=== PATIENT | female | born 1980 | race Caucasian/White ===

== ENCOUNTER 2019-08-22 06:59 | Day surgery (SDC) | payer OTHER ==
[~2019-08-22] VITALS: Ht 157.5 cm; Wt 105.0 kg
[~2019-08-22 06:59] MED LIST: BUTA1CAP57 PO; IBUP-1222 PO
[2019-08-22] MEDS ORDERED: LACTATED RINGERS 1,000 ML IV SCH (07:30)
[2019-08-22 07:31] VITALS: BP 133/92
[2019-08-22 07:34] LABS: HCG UR SG 1.024 (1.003-1.030)
[2019-08-22 07:48] VITALS: BP 133/92
[2019-08-22] MEDS ORDERED: ONDANSETRON 2MG/ML, 2ML ONE (08:11)
[2019-08-22] MEDS ORDERED: CEFAZOLIN 1,000 MG ONE ×2 (08:11)
[2019-08-22] MEDS ORDERED: FENTANYL PF 100 MCG/2ML ONE ×3 (08:11→10:18)
[2019-08-22] MEDS ORDERED: MIDAZOLAM 1 MG/ML, 2ML ONE (08:11)
[2019-08-22] MEDS ORDERED: PROPOFOL 10 MG/ML, 20ML ONE (08:11)
[2019-08-22] MEDS ORDERED: LIDOCAINE-MPF 2% ,5ML ONE (08:11)
[2019-08-22] MEDS ORDERED: BUPIVACAINE/PF 0.5% ONE (09:22)
[2019-08-22] MEDS ORDERED: EPINEPHRINE 1 MG/ML, 1ML ONE (09:22)
[2019-08-22] MEDS ORDERED: HALOPERIDOL 5 MG/ML IV PRN (09:30)
[2019-08-22] MEDS ORDERED: PROMETHAZINE 25 MG/ML, 1ML IV PRN (09:30)
[2019-08-22] MEDS ORDERED: OXYcodone 5 MG/5 ML ORAL.SOL UDC PO PRN (09:30)
[2019-08-22] MEDS ORDERED: hydrALAzine 20 MG/ML, 1ML IV PRN (09:30)
[2019-08-22] MEDS ORDERED: FENTANYL PF 100 MCG/2ML IV PRN (09:30)
[2019-08-22] MEDS ORDERED: LABETALOL 5MG/ML, 20ML IV PRN (09:30)
[2019-08-22] MEDS ORDERED: MEPERIDINE/PF 25MG/ML,1ML IVPush PRN (09:30)
[2019-08-22] MEDS ORDERED: HYDROmorphone 2 MG/ML, 1ML IVPush PRN (09:30)
[2019-08-22] MEDS ORDERED: OXYcodone 5 MG/5 ML ORAL.SOL UDC ONE (10:18)
== END 2019-08-22 12:00 | disposition home or self-care (01) ==
LOC: OUT 06:59
PROVIDERS: ATTEND Orthopaedic Surgery
DX: T84.84XA Pain due to internal orthopedic prosthetic devices, implants and grafts, initial encounter (principal); E66.01 Morbid (severe) obesity due to excess calories; Y83.8 Other surgical procedures as the cause of abnormal reaction of the patient, or of later complication, without mention of misadventure at the time of the procedure
CPT/HCPCS: 20680; 73600; 81025; J0171; J0690; J2250; J2405; J2704; J3010; J7120; 76000

== ENCOUNTER 2019-08-23 08:43 | Emergency (ER) | payer OTHER ==
[~2019-08-23] VITALS: Ht 154.9 cm; Wt 105.0 kg
[2019-08-23 08:48] VITALS: BP 132/82
[2019-08-23] MEDS ORDERED: SODIUM CHLORIDE FLUSH 10ML SYR IVF ONE (12:00)
[2019-08-23] MEDS ORDERED: DIPHENHYDRAMINE 50 MG/ML, 1ML IVPush ONE (12:00)
[2019-08-23] MEDS ORDERED: PROCHLORPERAZINE 5 MG/ML, 2ML IVPush ONE (12:00)
[2019-08-23] MEDS ORDERED: DIPHENHYDRAMINE 50 MG/ML, 1ML ONE (12:04)
[2019-08-23] MEDS ORDERED: PROCHLORPERAZINE 5 MG/ML, 2ML ONE (12:04)
== END 2019-08-23 13:00 | disposition home or self-care (01) ==
LOC: ED 12:50
DX: G43.909 Migraine, unspecified, not intractable, without status migrainosus (principal); H53.149 Visual discomfort, unspecified
CPT/HCPCS: 71046; 87081; 87880; 96374; 96375; 99284; J0780; J1200